=== PATIENT | female | born 1990 | race Caucasian/White ===

== ENCOUNTER 2017-07-01 20:00 | Inpatient (IN) | payer OTHER ==
[~2017-07-01] VITALS: Ht 160 cm; Wt 100.0 kg
[2017-07-01] MEDS ORDERED: ALBU8.5H8 IH (20:08)
[2017-07-01] MEDS ORDERED: ALBUTEROL SULFATE 2.5 MG/0.5 ML NEB SOLUTION NEB ONE (20:15)
[2017-07-01] MEDS ORDERED: IPRATROPIUM BROMIDE 0.5 MG/2.5 ML NEB SOLUTION NEB ONE ×2 (20:15→20:45)
[2017-07-01] MEDS ORDERED: 0.9% SODIUM CHLORIDE 5 ML NEB SOLUTION NEB ONE (20:39)
[2017-07-01] MEDS ORDERED: ALBUTEROL SULFATE 5 MG/ML 20 ML NEB SOLN [BULK] NEB ONE (20:45)
[2017-07-01 20:49] LABS: BASOPHILS # (AUTO) 0.05 K/uL (0.00-0.20); BASOPHILS % (AUTO) 0.4 % (0.0-2.0); EOSINOPHILS % (AUTO) 5.97 % (1.0-6.0); HEMATOCRIT 39.5 % (36-46); LYMPHOCYTES # (AUTO) 2.7 K/uL (1.0-4.8); LYMPHOCYTES % (AUTO) 23.2 % (22.0-44.0); MEAN CORPUSCULAR HEMOGLOBIN 28.3 pg (26.0-34.0); MEAN CORPUSCULAR VOLUME 86 fL (80-100); MONOCYTES # (AUTO) 0.4 K/uL (0.1-1.0); MONOCYTES % (AUTO) 3.1 % (2.0-9.0); NEUTROPHILS # (AUTO) 7.9 K/uL (1.8-7.7); NEUTROPHILS % (AUTO) 67.3 % (40.0-70.0); PLATELET COUNT (AUTO) 355 K/uL (150-450); RED BLOOD CELL COUNT(AUTO) 4.59 MIL/uL (4.00-5.20); RED CELL DISTRIBUTION WIDTH 14.1 % (11.5-14.5); WHITE BLOOD COUNT (AUTO) 11.8 K/uL (4.5-11.0)
[2017-07-01 21:04] LABS: ANION GAP 9 mmol/L (8-16); CALCIUM, TOTAL 8.8 mg/dL (8.8-10.5); CARBON DIOXIDE 30 mmol/L (22-29); CHLORIDE 105 mmol/L (98-107); CREATININE 0.92 mg/dL (0.60-1.30); GLOMERULAR FILTR. RATE CALC > 60 mL/min (>60); POTASSIUM 4.2 mmol/L (3.5-5.1); SODIUM SERUM 144 mmol/L (136-145); UREA NITROGEN, BLOOD 11 mg/dL (7-18)
[2017-07-01 21:10] LABS: ALANINE AMINOTRANSFERASE 24 U/L (12-78); ALBUMIN 3.4 g/dL (3.4-5.0); ASPARTATE AMINOTRANSFERASE 14 U/L (15-37); BILIRUBIN,TOTAL 0.1 mg/dL (0.1-1.0); TOTAL PROTEIN, SERUM 7.3 g/dL (6.4-8.2)
[2017-07-01] MEDS ORDERED: PredniSONE 20 MG TABLET PO ONE (21:30)
[2017-07-01] MEDS ORDERED: ACETAMINOPHEN 325 MG TABLET PO PRN ×2 (22:30)
[2017-07-01] MEDS ORDERED: IPRATROPIUM BROMIDE 0.5 MG/2.5 ML NEB SOLUTION NEB PRN ×2 (22:30)
[2017-07-01] MEDS ORDERED: 0.9% SODIUM CHLORIDE 10 ML SYRINGE IVP PRN (22:30)
[2017-07-01] MEDS ORDERED: ONDANSETRON HCL 4 MG/2 ML VIAL IVP PRN (22:30)
[2017-07-01] MEDS ORDERED: AZITHROMYCIN 500 MG/NS 250 ML IV ONE (22:30)
[2017-07-01] MEDS ORDERED: MAGNESIUM HYDROXIDE SUSPENSION 30 ML UDCUP PO PRN (22:30)
[2017-07-01] MEDS ORDERED: ALBUTEROL SULFATE 2.5 MG/0.5 ML NEB SOLUTION NEB PRN ×2 (22:30)
[2017-07-01] MEDS ORDERED: EPINEPHrine 1:1,000 [1 MG/ML] AMP SQ ONE (23:00)
[2017-07-01] MEDS ORDERED: ALBUTEROL SULFATE 2.5 MG/0.5 ML NEB SOLUTION NEB SCH (23:00)
[2017-07-01] MEDS ORDERED: IPRATROPIUM BROMIDE 0.5 MG/2.5 ML NEB SOLUTION NEB SCH (23:00)
[2017-07-01] MEDS: MethylPREDNISolone SOD SUCC 125 MG/2 ML VIAL IVP SCH (23:14)
[2017-07-01] MEDS ORDERED: ONDANSETRON HCL 4 MG/2 ML VIAL IVP ONE (23:30)
[2017-07-01 23:38] LABS: INFLUENZA TYPE B NEGATIVE FOR TYPE B (NEGATIVE)
[2017-07-02 01:20] VITALS: BP 120/61
[2017-07-02 06:05] VITALS: BP 119/61
[2017-07-02] MEDS: MethylPREDNISolone SOD SUCC 125 MG/2 ML VIAL IVP SCH ×3 (06:35→19:15)
[2017-07-02 08:14] VITALS: BP 118/67
[2017-07-02] MEDS: PANTOPRAZOLE SODIUM 40 MG DR TABLET PO SCH (09:38)
[2017-07-02] MEDS: DOCUSATE SODIUM 100 MG CAPSULE PO SCH ×2 (09:38→20:53)
[2017-07-02 11:30] VITALS: BP 122/64
[2017-07-02 15:33] VITALS: BP 119/63
[2017-07-02 20:17] VITALS: BP 119/60
[2017-07-03 00:08] VITALS: BP 113/56
[2017-07-03] MEDS: MethylPREDNISolone SOD SUCC 125 MG/2 ML VIAL IVP SCH ×3 (01:22→11:32)
[2017-07-03 04:33] VITALS: BP 112/71
[2017-07-03 07:26] VITALS: BP 108/58
[2017-07-03] MEDS: DOCUSATE SODIUM 100 MG CAPSULE PO SCH (08:29)
[2017-07-03] MEDS: PANTOPRAZOLE SODIUM 40 MG DR TABLET PO SCH (08:29)
[2017-07-03 11:53] VITALS: BP 103/55
[2017-07-03] MEDS ORDERED: PRED5 PO (16:07)
[2017-07-03 16:59] VITALS: BP 113/69
== END 2017-07-03 17:40 | disposition home or self-care (01) | DRG 141 ==
LOC: EMS 20:01 → 6N 07-02 00:55
PROVIDERS: ADMIT Internal Medicine; ATTEND Internal Medicine
DX: J45.901 Unspecified asthma with (acute) exacerbation (principal); E66.9 Obesity, unspecified; Z68.39 Body mass index [BMI] 39.0-39.9, adult
CPT/HCPCS: 87804; 94640; 94644; 96365; 96372; 96375; 99285; J0171; J0456; J2405; J2930

== ENCOUNTER 2017-08-24 09:25 | Emergency (ER) | payer BC, OTHER ==
[~2017-08-24] VITALS: Ht 160 cm; Wt 100.0 kg
[~2017-08-24 09:25] MED LIST: ALBU8.5H8 IH; PRED5 PO
[2017-08-24] MEDS ORDERED: ALBUTEROL SULFATE 2.5 MG/0.5 ML NEB SOLUTION NEB ONE ×2 (10:00→11:45)
[2017-08-24] MEDS ORDERED: ALBUTEROL SULFATE HFA 90 MCG/PUFF 8 GM INHALER IH ONE (10:00)
[2017-08-24] MEDS ORDERED: IPRATROPIUM BROMIDE 0.5 MG/2.5 ML NEB SOLUTION NEB ONE ×2 (10:00→10:15)
[2017-08-24] MEDS ORDERED: DEXAMETHASONE SOD PHOS 4 MG/ML 5 ML VIAL IM ONE (10:15)
[2017-08-24] MEDS ORDERED: 0.9% SODIUM CHLORIDE 5 ML NEB SOLUTION NEB ONE (10:18)
[2017-08-24] MEDS ORDERED: 0.9% SODIUM CHLORIDE 15 ML NEB SOLUTION NEB ONE (11:42)
[2017-08-24] MEDS ORDERED: ALBUTEROL SULFATE 5 MG/ML 20 ML NEB SOLN [BULK] NEB ONE (11:45)
[2017-08-24 12:33] LABS: INFLUENZA TYPE A NEGATIVE FOR TYPE A (NEGATIVE); INFLUENZA TYPE B NEGATIVE FOR TYPE B (NEGATIVE)
[2017-08-24 14:39] VITALS: BP 129/82
== END 2017-08-24 14:52 | disposition home or self-care (01) ==
LOC: EMS 09:26
DX: J45.902 Unspecified asthma with status asthmaticus (principal); M79.1 Myalgia
CPT/HCPCS: 87804; 94644; 96372; 99285; J1100; J7613; J3535

== ENCOUNTER 2017-11-21 22:02 | Emergency (ER) | payer BC, OTHER ==
[~2017-11-21] VITALS: Ht 162.6 cm; Wt 97.7 kg
[~2017-11-21 22:02] MED LIST changes: -PRED5 PO
[2017-11-21 22:25] LABS: BASOPHILS % (AUTO) 0.3 % (0.0-2.0); EOSINOPHILS % (AUTO) 3.4 % (1.0-6.0); HEMATOCRIT 37.5 % (36-46); HEMOGLOBIN 12.6 g/dL (12.0-16.0); LYMPHOCYTES # (AUTO) 3.7 K/uL (1.0-4.8); LYMPHOCYTES % (AUTO) 34.8 % (22.0-44.0); MEAN CORPUSCULAR HEMOGLOBIN 27.7 pg (26.0-34.0); MEAN CORPUSCULAR HGB CONC 33.7 G/dL (31.0-37.0); MEAN CORPUSCULAR VOLUME 82 fL (80-100); MONOCYTES # (AUTO) 0.5 K/uL (0.1-1.0); MONOCYTES % (AUTO) 4.6 % (2.0-9.0); NEUTROPHILS % (AUTO) 56.9 % (40.0-70.0); PLATELET COUNT (AUTO) 325 K/uL (150-450); RED BLOOD CELL COUNT(AUTO) 4.57 MIL/uL (4.00-5.20); RED CELL DISTRIBUTION WIDTH 14.4 % (11.5-14.5)
[2017-11-21 22:39] LABS: ANION GAP 5 mmol/L (8-16); CALCIUM, TOTAL 8.8 mg/dL (8.8-10.5); CARBON DIOXIDE 28 mmol/L (22-29); CHLORIDE 105 mmol/L (98-107); CREATININE 0.98 mg/dL (0.60-1.30); GLOMERULAR FILTR. RATE CALC > 60 mL/min (>60); GLUCOSE,RANDOM 108 mg/dL (70-110); POTASSIUM 3.6 mmol/L (3.5-5.1); SODIUM SERUM 138 mmol/L (136-145); UREA NITROGEN, BLOOD 13 mg/dL (7-18)
[2017-11-21 22:44] LABS: ALANINE AMINOTRANSFERASE 45 U/L (12-78); ALBUMIN 3.6 g/dL (3.4-5.0); ALKALINE PHOSPHATASE 71 U/L (46-116); AMYLASE 50 U/L (25-115); ASPARTATE AMINOTRANSFERASE 21 U/L (15-37); BILIRUBIN,TOTAL 0.2 mg/dL (0.1-1.0); LIPASE 114 U/L (73-393)
[2017-11-21 23:25] LABS: APPEARANCE,URINE CLEAR (CLEAR); BILIRUBIN,URINE NEGATIVE (NEGATIVE); GLUCOSE, URINE (UA) NEGATIVE (NEGATIVE); KETONES,URINE NEGATIVE (NEGATIVE); LEUKOCYTE ESTERASE ,URINE NEGATIVE (NEGATIVE); NITRATE,URINE NEGATIVE (NEGATIVE); OCCULT BLOOD,URINE NEGATIVE (NEGATIVE); PROTEIN,URINE NEGATIVE (NEGATIVE); UROBILINOGEN,URINE 0.2 mg/dL (<=1.0)
[2017-11-21 23:50] VITALS: BP 121/63
== END 2017-11-21 23:53 | disposition home or self-care (01) ==
LOC: EMS 22:03
DX: R10.9 Unspecified abdominal pain (principal); J45.909 Unspecified asthma, uncomplicated
CPT/HCPCS: 99284

== ENCOUNTER 2022-10-18 20:29 | Inpatient (IN) | payer BC, OTHER ==
[~2022-10-18] VITALS: Ht 162.6 cm; Wt 110.0 kg
[2022-10-18] MEDS ORDERED: ACETAMINOPHEN 500 MG TABLET PO ONE (20:45)
[2022-10-18] MEDS ORDERED: ALBUTEROL SULFATE 2.5 MG/0.5 ML NEB SOLUTION NEB ONE (20:45)
[2022-10-18] MEDS ORDERED: IPRATROPIUM BROMIDE 0.5 MG/2.5 ML NEB SOLUTION NEB ONE (20:45)
[2022-10-18] MEDS ORDERED: MAGNESIUM SULFATE 2 GM/WATER 50 ML IV ONE (22:15)
[2022-10-18] MEDS ORDERED: MethylPREDNISolone SOD SUCC 125 MG/2 ML VIAL IVP ONE (22:15)
[2022-10-19 00:35] LABS: BASOPHILS % (AUTO) 0.2 % (0.0-2.0); EOSINOPHILS % (AUTO) 0.4 % (1.0-6.0); HEMATOCRIT 39.9 % (36-46); HEMOGLOBIN 13.1 g/dL (12.0-16.0); LYMPHOCYTES # (AUTO) 0.9 K/uL (1.0-4.8); LYMPHOCYTES % (AUTO) 5.2 % (22.0-44.0); MEAN CORPUSCULAR HEMOGLOBIN 27.4 pg (26.0-34.0); MEAN CORPUSCULAR HGB CONC 32.9 G/dL (31.0-37.0); MEAN CORPUSCULAR VOLUME 83 fL (80-100); MONOCYTES # (AUTO) 0.2 K/uL (0.1-1.0); MONOCYTES % (AUTO) 1.3 % (2.0-9.0); NEUTROPHILS # (AUTO) 15.6 K/uL (1.8-7.7); PLATELET COUNT (AUTO) 387 K/uL (150-450); RED BLOOD CELL COUNT(AUTO) 4.78 MIL/uL (4.00-5.20); RED CELL DISTRIBUTION WIDTH 14.1 % (11.5-14.5)
[2022-10-19 00:37] LABS: NEUTROPHILS % (AUTO) 92.9 % (40.0-70.0)
[2022-10-19 00:45] LABS: ANION GAP 8 mmol/L (8-16); CALCIUM, TOTAL 8.9 mg/dL (8.8-10.5); CARBON DIOXIDE 28 mmol/L (22-29); CHLORIDE 103 mmol/L (98-107); CREATININE 0.92 mg/dL (0.60-1.30); GLOMERULAR FILTR. RATE CALC > 60 mL/min (>60); GLUCOSE,RANDOM 138 mg/dL (70-110); POTASSIUM 4.9 mmol/L (3.5-5.1); SODIUM SERUM 139 mmol/L (136-145); UREA NITROGEN, BLOOD 10 mg/dL (7-18)
[2022-10-19 00:50] LABS: ALANINE AMINOTRANSFERASE 25 U/L (12-78); ALBUMIN 3.9 g/dL (3.4-5.0); ALKALINE PHOSPHATASE 78 U/L (46-116); ASPARTATE AMINOTRANSFERASE 20 U/L (15-37); BILIRUBIN,TOTAL 0.3 mg/dL (0.1-1.0); TOTAL PROTEIN, SERUM 7.6 g/dL (6.4-8.2)
[2022-10-19] MEDS ORDERED: ONDANSETRON HCL 4 MG/2 ML VIAL IVP PRN (01:00)
[2022-10-19] MEDS ORDERED: ACETAMINOPHEN 325 MG TABLET PO PRN (01:00)
[2022-10-19 01:58] LABS: COVID AG,FIA SOURCE NASAL SWAB
[2022-10-19] MEDS ORDERED: CefTRIAXone 1 GM/DEXTROSE 50 ML IV ONE (02:00)
[2022-10-19] MEDS ORDERED: AZITHROMYCIN 500 MG/NS 250 ML IV ONE (02:00)
[2022-10-19 02:02] LABS: INFLUENZA TYPE A NEGATIVE FOR TYPE A (NEGATIVE); INFLUENZA TYPE B NEGATIVE FOR TYPE B (NEGATIVE)
[2022-10-19 03:07] VITALS: BP 126/90
[2022-10-19] MEDS: IPRATROPIUM BROMIDE 0.5 MG/2.5 ML NEB SOLUTION NEB PRN ×3 (03:21→19:42)
[2022-10-19] MEDS: ALBUTEROL SULFATE 2.5 MG/0.5 ML NEB SOLUTION NEB PRN ×3 (03:21→19:42)
[2022-10-19 08:06] VITALS: BP 114/60
[2022-10-19] MEDS: DOCUSATE SODIUM 100 MG CAPSULE PO SCH ×2 (08:55→20:23)
[2022-10-19] MEDS: HEPARIN SODIUM,PORCINE 5,000 UNITS/ML VIAL SQ SCH ×3 (08:56→23:56)
[2022-10-19] MEDS ORDERED: MethylPREDNISolone SOD SUCC 125 MG/2 ML VIAL IVP SCH (09:00)
[2022-10-19] MEDS ORDERED: *CLINICAL-LEVOFLOXACIN IVPB DOSING CLINICAL ONE (14:30)
[2022-10-19 15:45] VITALS: BP 116/62
[2022-10-19] MEDS: MethylPREDNISolone SOD SUCC 125 MG/2 ML VIAL IVP SCH ×2 (15:47→23:54)
[2022-10-19] MEDS: LEVOFLOXACIN 750 MG/D5% WATER 150 ML IV SCH (15:48)
[2022-10-19 20:03] VITALS: BP 141/75
[2022-10-20] MEDS: ALBUTEROL SULFATE 2.5 MG/0.5 ML NEB SOLUTION NEB PRN ×2 (02:23→12:33)
[2022-10-20] MEDS: IPRATROPIUM BROMIDE 0.5 MG/2.5 ML NEB SOLUTION NEB PRN ×2 (02:23→12:33)
[2022-10-20 04:12] VITALS: BP 131/63
[2022-10-20 07:52] LABS: BASOPHILS % (AUTO) 0.1 % (0.0-2.0); EOSINOPHILS % (AUTO) 0 % (1.0-6.0); HEMATOCRIT 38.6 % (36-46); HEMOGLOBIN 12.7 g/dL (12.0-16.0); LYMPHOCYTES # (AUTO) 1.9 K/uL (1.0-4.8); LYMPHOCYTES % (AUTO) 6.8 % (22.0-44.0); MEAN CORPUSCULAR HEMOGLOBIN 27.3 pg (26.0-34.0); MEAN CORPUSCULAR HGB CONC 32.8 G/dL (31.0-37.0); MEAN CORPUSCULAR VOLUME 83 fL (80-100); MONOCYTES # (AUTO) 0.6 K/uL (0.1-1.0); MONOCYTES % (AUTO) 2.1 % (2.0-9.0); NEUTROPHILS # (AUTO) 25.7 K/uL (1.8-7.7); PLATELET COUNT (AUTO) 417 K/uL (150-450); RED BLOOD CELL COUNT(AUTO) 4.64 MIL/uL (4.00-5.20); RED CELL DISTRIBUTION WIDTH 14.1 % (11.5-14.5)
[2022-10-20 08:02] LABS: ANION GAP 6 mmol/L (8-16); CARBON DIOXIDE 28 mmol/L (22-29); CHLORIDE 103 mmol/L (98-107); CREATININE 0.82 mg/dL (0.60-1.30); GLUCOSE,RANDOM 137 mg/dL (70-110); POTASSIUM 4.5 mmol/L (3.5-5.1); SODIUM SERUM 137 mmol/L (136-145); UREA NITROGEN, BLOOD 13 mg/dL (7-18)
[2022-10-20 08:03] LABS: CALCIUM, TOTAL 9.2 mg/dL (8.8-10.5); GLOMERULAR FILTR. RATE CALC > 60 mL/min (>60)
[2022-10-20 08:05] VITALS: BP 142/78
[2022-10-20] MEDS: HEPARIN SODIUM,PORCINE 5,000 UNITS/ML VIAL SQ SCH ×2 (08:36→15:48)
[2022-10-20] MEDS: MethylPREDNISolone SOD SUCC 125 MG/2 ML VIAL IVP SCH ×2 (08:36→15:48)
[2022-10-20] MEDS: DOCUSATE SODIUM 100 MG CAPSULE PO SCH ×2 (08:36→20:22)
[2022-10-20 15:20] VITALS: BP 124/69
[2022-10-20] MEDS: LEVOFLOXACIN 750 MG/D5% WATER 150 ML IV SCH (15:47)
[2022-10-20 19:50] VITALS: BP 120/73
[2022-10-21] MEDS: MethylPREDNISolone SOD SUCC 125 MG/2 ML VIAL IVP SCH ×2 (00:46→08:46)
[2022-10-21] MEDS: HEPARIN SODIUM,PORCINE 5,000 UNITS/ML VIAL SQ SCH ×2 (00:47→08:47)
[2022-10-21] MEDS: IPRATROPIUM BROMIDE 0.5 MG/2.5 ML NEB SOLUTION NEB PRN ×2 (01:31→11:42)
[2022-10-21] MEDS: ALBUTEROL SULFATE 2.5 MG/0.5 ML NEB SOLUTION NEB PRN ×2 (01:31→11:42)
[2022-10-21 04:10] VITALS: BP 127/70
[2022-10-21 08:10] VITALS: BP 127/68
[2022-10-21] MEDS: DOCUSATE SODIUM 100 MG CAPSULE PO SCH (08:48)
[2022-10-21] MEDS ORDERED: ALBU18HF12 IH (09:52)
[2022-10-21] MEDS ORDERED: PRED-554 PO (09:52)
[2022-10-21] MEDS ORDERED: LEVO750T68 PO (09:52)
[2022-10-21] MEDS: LEVOFLOXACIN 750 MG/D5% WATER 150 ML IV SCH (13:07)
[2022-10-21 15:03] VITALS: BP 121/71
== END 2022-10-21 16:10 | disposition home or self-care (01) | DRG 189 ==
LOC: EMS 20:30 → 6S 10-19 01:00
PROVIDERS: ADMIT Internal Medicine; ATTEND Internal Medicine
DX: J96.01 Acute respiratory failure with hypoxia (principal); J45.902 Unspecified asthma with status asthmaticus; R65.10 Systemic inflammatory response syndrome (SIRS) of non-infectious origin without acute organ dysfunction; Z68.41 Body mass index [BMI] 40.0-44.9, adult; E66.01 Morbid (severe) obesity due to excess calories; Z20.822 Contact with and (suspected) exposure to COVID-19
CPT/HCPCS: 71045; 80048; 80053; 83735; 85025; 85379; 87804; 94640; 94644; 99291; J0456; J0696; J1644; J1956; J2930; J3475; 36415-L1; 36415-TC; J7613

== ENCOUNTER 2023-08-10 19:18 | Emergency (ER) | payer BC, OTHER ==
[~2023-08-10] VITALS: Ht 162.6 cm; Wt 104.0 kg
[~2023-08-10 19:18] MED LIST changes: +ALBU18HF12 IH; -ALBU8.5H8 IH; +LEVO750T68 PO; +PRED-554 PO
[2023-08-10 19:23] VITALS: TEMP 98.1
[2023-08-10] MEDS ORDERED: ONDANSETRON HCL 4 MG/2 ML VIAL IVP ONE (22:45)
[2023-08-10] MEDS ORDERED: KETOROLAC TROMETHAMINE 30 MG/ML VIAL IVP ONE (22:45)
[2023-08-10] MEDS ORDERED: MORPHINE SULFATE 4 MG/ML SYRINGE IVP ONE (22:45)
[2023-08-10] MEDS ORDERED: METHOCARBAMOL 100 MG/ML 10 ML VIAL IVP ONE (22:45)
[2023-08-10 22:52] LABS: BASOPHILS % (AUTO) 0.4 % (0.0-2.0); EOSINOPHILS % (AUTO) 2.8 % (1.0-6.0); HEMATOCRIT 39.2 % (36-46); HEMOGLOBIN 12.6 g/dL (12.0-16.0); LYMPHOCYTES % (AUTO) 27.2 % (22.0-44.0); MEAN CORPUSCULAR HGB CONC 32.1 G/dL (31.0-37.0); MEAN CORPUSCULAR VOLUME 84 fL (80-100); MONOCYTES # (AUTO) 0.5 K/uL (0.1-1.0); MONOCYTES % (AUTO) 4.2 % (2.0-9.0); NEUTROPHILS # (AUTO) 7.3 K/uL (1.8-7.7); NEUTROPHILS % (AUTO) 65.4 % (40.0-70.0); PLATELET COUNT (AUTO) 397 K/uL (150-450); RED BLOOD CELL COUNT(AUTO) 4.66 MIL/uL (4.00-5.20); RED CELL DISTRIBUTION WIDTH 14.3 % (11.5-14.5); WHITE BLOOD COUNT (AUTO) 11.2 K/uL (4.5-11.0)
[2023-08-10 23:01] LABS: ANION GAP 7 mmol/L (8-16); CALCIUM, TOTAL 9.1 mg/dL (8.8-10.5); CARBON DIOXIDE 29 mmol/L (22-29); CHLORIDE 104 mmol/L (98-107); CREATININE 0.84 mg/dL (0.60-1.30); GLOMERULAR FILTR. RATE CALC > 60 mL/min (>60); GLUCOSE,RANDOM 90 mg/dL (70-110); POTASSIUM 4.1 mmol/L (3.5-5.1); SODIUM SERUM 140 mmol/L (136-145); UREA NITROGEN, BLOOD 12 mg/dL (7-18)
[2023-08-10] MEDS ORDERED: IBUP-1554 PO (23:48)
[2023-08-10] MEDS ORDERED: ACET-2080 PO (23:48)
[2023-08-10] MEDS ORDERED: METH-659 PO (23:48)
[2023-08-11 00:13] VITALS: BP 109/75; PULSE 71; RESP 16
== END 2023-08-11 00:14 | disposition home or self-care (01) ==
LOC: EMS 19:19
DX: S39.012A Strain of muscle, fascia and tendon of lower back, initial encounter (principal); J45.909 Unspecified asthma, uncomplicated; Z98.890 Other specified postprocedural states; X58.XXXA Exposure to other specified factors, initial encounter; Y93.89 Activity, other specified; Y92.89 Other specified places as the place of occurrence of the external cause; Y99.8 Other external cause status
CPT/HCPCS: 99284; 96374; 96375; 80048; 84703; 85025; 36415; J1885; J2270; J2405; J2800

== ENCOUNTER 2024-07-20 21:12 | Emergency (ER) | payer BC ==
[~2024-07-20] VITALS: Ht 162.6 cm; Wt 106.8 kg
[~2024-07-20 21:12] MED LIST changes: +ACET-2080 PO; +IBUP-1554 PO; +METH-659 PO
[2024-07-20 21:22] VITALS: BP 106/71; PULSE 108; RESP 16; TEMP 99.5; O2SAT 100
[2024-07-20 21:34] LABS: COVID AG,FIA SOURCE NASAL SWAB
[2024-07-20 22:06] LABS: INFLUENZA TYPE A NEGATIVE FOR TYPE A (NEGATIVE); INFLUENZA TYPE B NEGATIVE FOR TYPE B (NEGATIVE); SARS-COV2 (COVID) ANTIGEN,FIA Negative (Negative)
[2024-07-20] MEDS ORDERED: ALBU0.8311 NEB (23:38)
[2024-07-20] MEDS ORDERED: PRED-554 PO (23:38)
[2024-07-20] MEDS ORDERED: ALBU18HF12 IH (23:38)
[2024-07-20] MEDS ORDERED: AZIT250T9 PO (23:39)
[2024-07-20] MEDS: PredniSONE 20 MG TABLET PO ONE (23:50)
== END 2024-07-20 23:55 | disposition home or self-care (01) ==
LOC: EMS 21:12
DX: J45.901 Unspecified asthma with (acute) exacerbation (principal); R50.9 Fever, unspecified; Z79.52 Long term (current) use of systemic steroids; Z20.822 Contact with and (suspected) exposure to COVID-19
CPT/HCPCS: 99284; 71045; 87426; 87804; J7512